=== PATIENT | male | born 1945 | race Caucasian/White ===

== ENCOUNTER → 2018-11-06 | Outpatient (CLI) | payer MEDICARE ==
[~2018-11-06] MED LIST: AMLO10 PO; ASPI81CH PO; ATOR40TA PO; CEPH500 PO; Flomax0.4 MG PO; HYDCHL25 PO; HYDMOR2 PO; LOSA50 PO; MELO7.5 PO; METO25ER PO; Norco 5-325 Ta1 EACH PO; Percocet 5-3251 EACH PO; Prilosec Otc20 MG PO; RXOXYACE PO; UNKNOWN BP MED; VALA500 PO; VITAMINS; WARF2 PO; Zofran Odt4 MG SL
[2018-11-17 08:15] LABS: CALCIUM OXALATE 3.16 ratio (0.00-6.00); CALCIUM, URINE 10.2 mg/dL (Not Estab.); CALCIUM, URINE 234.6 mg/24 hr (100.0-300.0); CHLORIDE URINE 283 (110-250); CITRIC ACID (CITRATE) 106 mg/L (Not Estab.); CITRIC ACID(CITRATE) 244 mg/24 hr (320-1240); CREATININE, URINE 1090.2 mg/24 hr (1000.0-2000.0); CREATININE, URINE 47.4 mg/dL (Not Estab.); MAGNESIUM, URINE 3.9 mg/dL (Not Estab.); MONOSODIUM URATE 2.61 ratio (0.00-4.00); OSMOLALITY, URINE 476 (300-900); SODIUM, URINE 133 mmol/L (Not Estab.); SODIUM, URINE 306 (58-337); STRUVITE 0.02 ratio (0.00-1.00); URIC ACID 0.49 ratio (0.00-1.20); URINE VOLUME 2300 mL/24 hr (800-1800); URINE VOLUME (PRESERVATIVE) 2300 mL/24 hr (800-1800)
== END | disposition home or self-care (01) ==
LOC: LAB SHORT 10:46 → LAB 10:46
PROVIDERS: Urology
DX: N20.2 Calculus of kidney with calculus of ureter (principal)
CPT/HCPCS: 81003; 81050; 82131; 82140; 82340; 82436; 82507; 82570; 83735; 83935; 83945; 84105; 84133; 84300; 84392; 84560

== ENCOUNTER 2018-11-24 08:11 | Observation (INO) | payer MEDICARE ==
[~2018-11-24] VITALS: Ht 175.3 cm; Wt 121.4 kg
[~2018-11-24 08:11] MED LIST changes: -ATOR40TA PO
[2018-11-24] MEDS ORDERED: Hair, Skin & N1 EACH PO (08:22)
[2018-11-24 08:44] LABS: BASOPHILS ABSOLUTE AUTO 0.03 K/mm3 (0.00-0.23); BASOPHILS PERCENT AUTO 0 % (0-2); EOSINOPHILS ABSOLUTE AUTO 0.13 K/mm3 (0.00-0.68); EOSINOPHILS PERCENT AUTO 2 % (0-6); Hematocrit 45.8 % (37.0-53.0); Hemoglobin 14.3 g/dL (13.5-17.5); IMMATURE GRAN ABSOLUTE AUTO 0.03 K/mm3 (0.00-0.10); IMMATURE GRAN PERCENT AUTO 0 % (0-1); LYMPHOCYTES ABSOLUTE AUTO 1.93 K/mm3 (0.84-5.20); LYMPHOCYTES PERCENT AUTO 26 % (21-46); MONOCYTES ABSOLUTE AUTO 0.57 K/mm3 (0.16-1.47); MONOCYTES PERCENT AUTO 8 % (4-13); Mean Corpuscular HGB Conc 31.2 g/dL (31.5-36.5); Mean Corpuscular Volume 87 fL (80-100); Mean Platelet Volume 11.3 fL (9.1-12.4); NEUTROPHILS ABSOLUTE AUTO 4.87 K/mm3 (1.96-9.15); NEUTROPHILS PERCENT AUTO 65 % (41-73); Platelet Count 156 K/mm3 (150-400); RDW Coefficient Variation 13.2 % (11.7-14.2); Red Blood Cell Count 5.29 M/mm3 (4.30-5.90); White Blood Cell Count 7.56 K/mm3 (4.00-11.30)
[2018-11-24 09:11] LABS: Alanine Aminotransfer (ALT/SGP 27 U/L (12-78); Albumin, Blood 3.5 g/dL (3.4-5.0); Albumin/Globulin Ratio 0.8 (0.8-1.8); Alk Phos 145 U/L (50-136); Anion Gap 6 mmol/L (6-16); Aspartate Aminotrans (AST/SGOT 14 U/L (12-37); Bilirubin, Total 0.7 mg/dL (0.1-1.0); Blood Urea Nitrogen 19 mg/dL (8-24); Bun/Creatinine Ratio 22.3 (12.0-20.0); CO2, Blood 29 mmol/L (21-32); Calcium, Blood 8.5 mg/dL (8.5-10.1); Chloride, Blood 106 mmol/L (98-108); Creatinine, Blood 0.85 mg/dL (0.60-1.20); Globulin, Blood 4.5 g/dL (2.2-4.0); Glomerular Filtration Rate >60 (60-); Glucose, Blood 136 mg/dL (70-99); Potassium, Blood 3.7 mmol/L (3.5-5.5); Sodium, Blood 141 mmol/L (136-145); Troponin I 0.104 ng/mL (0.000-0.040)
[2018-11-24 11:40] LABS: International Normalized Ratio 1.61; Prothrombin Time Results 16.3 Sec (9.7-11.5)
[2018-11-24] MEDS ORDERED: ATOR40TA PO (12:09)
[2018-11-24] MEDS ORDERED: Toprol Xl50 MG PO (12:10)
[2018-11-24] MEDS ORDERED: FURO20 PO (12:11)
[2018-11-24] MEDS ORDERED: Potaba500 MG PO (12:12)
[2018-11-24] MEDS ORDERED: POTA10T PO (12:14)
[2018-11-24] MEDS ORDERED: WARF4 PO (12:26)
[2018-11-24] MEDS ORDERED: Vitamin E400 UNI4 PO (12:31)
[2018-11-24] MEDS ORDERED: ASPI81CH PO (12:31)
[2018-11-24] MEDS ORDERED: CYAN500 PO (12:32)
[2018-11-24] MEDS ORDERED: Ferosul325 MG PO (12:32)
--- NOTE | 2018-11-24 14:45 | NUR ---
INITIAL ASSESSMENT PATIENT ARRIVED TO UNIT AT 1418. PATIENT ALERT AND ORIENTED X 4. [place]- BILAT HEARING AIDES IN PLACE. PATIENT AMBULATING WELL ON OWN. PATIENT AFEBRILE. PATIENT STATES THAT HE ONLY HAS PAIN IN CHEST WHEN COUGHS, OTHERWISE NO PAIN. PATIENT SATTING WELL ON RA. PATIENT STATES HE WEARS CPAP AT HOME AT NIGHT. LUNGS CLEAR IN UPPER LOBES, DIMINISHED IN LEFT LOWER LOBE, COARSE IN RML AND RLL. PATIENT HAS OCCASIONAL, NONPRODUCTIVE COUGH. PATIENT IN NSR WITH RBBB. HR IN THE 70S. SBP IN THE LOW 200S. ABDOMEN MODERATELY DISTENDED- PATIENT STATES NORMAL FOR HIM. ABD SOFT, NONTENDER, WITH HYPERACTIVE BS. PATIENT REPORTS LAST BM THIS AM. WNL. DRY SKIN ABOVE EARS- REPORTS THAT IS FROM GLASSES AND THEN HE PICKS AT. BILAT SHINS DISCOLORED, DRY, AND SCALING. PATIENT REPORTS HX OF PVD. HEPARIN INFUSING AT 13 UNITS/ KG/ HOUR. NS INFUSING AT 125 MLS/ HOUR. BED LOW, CALL LIGHT IN REACH. PATIENT HAS BEEN ORIENTED TO UNIT AND CALL SYSTEM. WILL CONTINUE TO MONITOR FREQUENTLY THROUGHOUT SHIFT.
--- NOTE | 2018-11-24 15:42 | NUR ---
DR. RODRIGUEZ CALLED AND INFORMED PRIMARY NURSE THAT THE PRIMARY DOCTOR WILL NEED TO TRANSFER PATIENT TO [place] IF HE IS HAVING A NSTEMI AND NEEDS AN ANGIO BECAUSE WE DO NOT HAVE INTERVENTIONAL BACKUP IF IT IS NEEDED. DR. LUU INFORMED OF THIS AND STATES THAT HE DOES NOT HAVE TIME TO FIND AN ACCEPTING HOSPITAL AND DOCTOR. CHARGE NURSE INFORMED. ALSO INFORMED DR. LUU THAT PATIENT TAKES DIURETICS AT HOME. ORDER FOR BNP RECEIVED.
[2018-11-24 15:50] LABS: Creatine Kinase MB 2.3 ng/mL (0.0-3.6); Troponin I 0.118 ng/mL (0.000-0.040)
--- NOTE | 2018-11-24 16:00 | NUR ---
PATIENT RESTING QUIETLY IN BED. PATIENT HAS TEMP OF 99.5 DEGREES FAHRENHEIT. PATIENT DENIES PAIN. PATIENT GIVEN PRN IV METOPROLOL FOR SBP OVER 150. NS INFUSING AT 75 MLS/ HOUR. NO OTHER ACUTE CHANGES TO NOTE ON AT THIS TIME. WILL CONTINUE TO MONITOR.
--- NOTE | 2018-11-24 16:16 | NUR ---
INFORMED DR. RODRIGUEZ ABOUT WHAT DR. LUU HAD TO SAY AND THAT TRANSFER STILL NEEDS TO BE INITIATED. INFORMED THAT NURSE SPOKE TO CHARGE NURSE, THERESA HUYNH, AND TEST DEVELOPER, CARLY RODRIGUEZ ABOUT DOCTOR TRANSFERRING. DR. RODRIGUEZ GIVEN DR. LUU'S NUMBER SO THEY CAN TALK TO EACH OTHER ABOUT WHO IS TO TRANSFER PATIENT.
--- NOTE | 2018-11-24 16:45 | NUR ---
INFORMED DR. LUU OF PATIENT'S CONTINUED HIGH BLOOD PRESSURE. ORDER FOR PRN IV HYDRALAZINE OBTAINED.
--- NOTE | 2018-11-24 17:54 | NUR ---
DR. PEDROTRATE INFORMED THAT PATIENT'S BP CONTINUES TO BE HIGH- SBP 189. ALSO INFORMED THAT TEMPERATURE CONTINUES TO INCREASE AND IS NOW AT 100.8 DEGREES FAHNREHEIT. ORDERS OBTAINED.
[2018-11-24 18:15] LABS: BASOPHILS ABSOLUTE AUTO 0.04 K/mm3 (0.00-0.23); BASOPHILS PERCENT AUTO 0 % (0-2); EOSINOPHILS ABSOLUTE AUTO 0.02 K/mm3 (0.00-0.68); EOSINOPHILS PERCENT AUTO 0 % (0-6); Hematocrit 45.1 % (37.0-53.0); Hemoglobin 14.1 g/dL (13.5-17.5); IMMATURE GRAN ABSOLUTE AUTO 0.04 K/mm3 (0.00-0.10); IMMATURE GRAN PERCENT AUTO 0 % (0-1); LYMPHOCYTES ABSOLUTE AUTO 1.36 K/mm3 (0.84-5.20); LYMPHOCYTES PERCENT AUTO 11 % (21-46); MONOCYTES ABSOLUTE AUTO 0.78 K/mm3 (0.16-1.47); MONOCYTES PERCENT AUTO 6 % (4-13); Mean Corpuscular HGB 27.2 pg (26.0-34.0); Mean Corpuscular HGB Conc 31.3 g/dL (31.5-36.5); Mean Corpuscular Volume 87 fL (80-100); Mean Platelet Volume 12.3 fL (9.1-12.4); NEUTROPHILS ABSOLUTE AUTO 9.99 K/mm3 (1.96-9.15); NEUTROPHILS PERCENT AUTO 82 % (41-73); Platelet Count 157 K/mm3 (150-400); RDW Coefficient Variation 13.2 % (11.7-14.2); RDW Standard Deviation 41.2 fL (35.1-46.3); Red Blood Cell Count 5.19 M/mm3 (4.30-5.90); White Blood Cell Count 12.23 K/mm3 (4.00-11.30)
--- NOTE | 2018-11-24 19:02 | NUR ---
SHIFT SUMMARY PATIENT REMAINS ALERT AND ORIENTED X 4. PATIENT WENT FROM AFEBRILE UPON ADMIT TO TMAX OF 100.8 DEGREES FAHRENHEIT. PATIENT [place]- BILAT HEARING AIDES IN PLACE. PATIENT STATED THAT HE ONLY HAD PAIN IN CHEST WHEN COUGHED. PATIENT REMAINED SATTING WELL ON RA. PATIENT STATES HE WEARS CPAP AT HS. PATIENT CONTINUES TO HAVE OCCASIONAL, NONPROD COUGH. LUNGS REMAINED CLEAR IN UPPER LOBES, DIMINISHED IN LLL, AND COARSE IN RLL. PATIENT REMAINED IN SR WITH RBBB. HR 60S TO 80S. SBP 160S TO LOW 200S. PATIENT GIVEN PRN IV METOPROLOL, LABETALOL AND HYDRALAZINE. NO CHANGE IN GI. PATIENT VOIDING INTO TOILET. NO CHANGE TO SKIN. HEPARIN INFUSING AT 13 UNITS/ KG/ HOUR, NS TKO. PATIENT HAS NO COMPLAINTS AT THIS TIME. PATIENT'S STEP SON HAS BEEN HERE SINCE ADMITTED. BED LOW, CALL LIGHT IN REACH. REPORT WILL BE GIVEN TO ONCOMING [employer]WN [employer]OWER MECHANIC NURSE SHORTLY.
--- NOTE | 2018-11-24 19:20 | NUR ---
ASSUME CARE; REPORT RECIEVED FROM OFF GOING RN PATRICK. MONITOR ITCT SHOWING SINUS RHYTHUM. HEART RATE 60'S-70S. DENIES DISCOMFORT. LUNG SOUNDS CLEAR UPPER LOBES WITH DECREASED SOUNDS IN THE BASES. SPO2 94-98% ABDOMEN SOFT WITH BOWEL SOUNDS FOUR QUADS. VOIDS AB URINE PER URINAL. VISITS WITH VISITIOR IN ROOM. REQUEST LATE MEAL TRAY. OBTAINED. ATE 80% TOLERATES WELL. REPOSITIONS SELF IN BED CONTINUE TO MONITOR AND REPORT CHANGE IN PATIENT CONDITION
[2018-11-24 20:31] LABS: Creatine Kinase MB 1.5 ng/mL (0.0-3.6); Creatine Kinase MB Index 1.4 (0.0-4.0); Troponin I 0.115 ng/mL (0.000-0.040)
[2018-11-24 21:02] LABS: Adenovirus Not Detected (NOT DETECT); Bordetella pertussis Not Detected (NOT DETECT); Chlamydophila pneumoniae Not Detected (NOT DETECT); Coronavirus 229E Not Detected (NOT DETECT); Coronavirus HKU1 Not Detected (NOT DETECT); Coronavirus NL63 Not Detected (NOT DETECT); Coronavirus OC43 Not Detected (NOT DETECT); Human Metapneumovirus Not Detected (NOT DETECT); Human Rhinovirus/Enterovirus Not Detected (NOT DETECT); Influenza A Not Detected (NOT DETECT); Influenza A/2009-H1 Not Detected (NOT DETECT); Influenza A/H1 Not Detected (NOT DETECT); Influenza A/H3 Not Detected (NOT DETECT); Influenza B Not Detected (NOT DETECT); Mycoplasma pneumoniae Not Detected (NOT DETECT); Parainfluenza Virus 1 Not Detected (NOT DETECT); Parainfluenza Virus 2 Not Detected (NOT DETECT); Parainfluenza Virus 3 Not Detected (NOT DETECT); Parainfluenza Virus 4 Not Detected (NOT DETECT); Respiratory Syncytial Virus Not Detected (NOT DETECT)
[2018-11-25 05:23] LABS: BASOPHILS ABSOLUTE AUTO 0.04 K/mm3 (0.00-0.23); BASOPHILS PERCENT AUTO 0 % (0-2); EOSINOPHILS ABSOLUTE AUTO 0.04 K/mm3 (0.00-0.68); EOSINOPHILS PERCENT AUTO 0 % (0-6); Hematocrit 41.4 % (37.0-53.0); Hemoglobin 13.1 g/dL (13.5-17.5); IMMATURE GRAN ABSOLUTE AUTO 0.04 K/mm3 (0.00-0.10); IMMATURE GRAN PERCENT AUTO 0 % (0-1); LYMPHOCYTES ABSOLUTE AUTO 2.39 K/mm3 (0.84-5.20); LYMPHOCYTES PERCENT AUTO 19 % (21-46); MONOCYTES ABSOLUTE AUTO 1.15 K/mm3 (0.16-1.47); MONOCYTES PERCENT AUTO 9 % (4-13); Mean Corpuscular HGB 27.1 pg (26.0-34.0); Mean Corpuscular HGB Conc 31.6 g/dL (31.5-36.5); Mean Corpuscular Volume 86 fL (80-100); Mean Platelet Volume 11.3 fL (9.1-12.4); NEUTROPHILS ABSOLUTE AUTO 9.27 K/mm3 (1.96-9.15); NEUTROPHILS PERCENT AUTO 72 % (41-73); Platelet Count 144 K/mm3 (150-400); RDW Coefficient Variation 13.3 % (11.7-14.2); RDW Standard Deviation 41.2 fL (35.1-46.3); Red Blood Cell Count 4.83 M/mm3 (4.30-5.90); White Blood Cell Count 12.93 K/mm3 (4.00-11.30)
[2018-11-25 05:42] LABS: International Normalized Ratio 2.04; Prothrombin Time Results 20.3 Sec (9.7-11.5)
[2018-11-25 05:48] LABS: Anion Gap 6 mmol/L (6-16); Blood Urea Nitrogen 17 mg/dL (8-24); Bun/Creatinine Ratio 16.8 (12.0-20.0); CO2, Blood 28 mmol/L (21-32); Calcium, Blood 8.5 mg/dL (8.5-10.1); Chloride, Blood 108 mmol/L (98-108); Cholesterol 114 mg/dL (50-200); Creatinine, Blood 1.01 mg/dL (0.60-1.20); Glomerular Filtration Rate >60 (60-); Glucose, Blood 113 mg/dL (70-99); Potassium, Blood 3.8 mmol/L (3.5-5.5); Sodium, Blood 142 mmol/L (136-145); Triglycerides 148 mg/dL (30-160)
--- NOTE | 2018-11-25 06:13 | NUR ---
SHIFT SUMMARY : RESTS QUIETLY WHEN UNDISTURBED. MONITOR INTACT SHOWING SINUS RHYTHM. HEART RATE 70S. DENIES DISCOMFORT. LUNG SOUNDS COARSE WITH AUDIBLE WHEEZE. RESPIRATIONS 20-24/M. SPO2 92-97% SPOT CHECK. ABDOMEN SOFT WITH BOWEL SOUNDS FOUR QUADS. VOIDS AB URINE. GAIT STEADY TO TOILET AND UP IN ROOM UP IN CHAIR FOR SEVERAL HOURS TONIGHT. CONTINUE TO MONITOR AND REPORT CHANGE IN PATIENT CONDITION.
--- NOTE | 2018-11-25 07:59 | NUR ---
ASSUMED CARE PT ALERT AND ORIENTED THIS AM; UP TO BESIDE CHAIR INDEPENDENTLY. PT STATES "I WOULD LIKE TO GO HOME THIS MORNING, IM FEELING BETTER, I DONT WANT ANY TESTS" EXPLAINED TO PT THE RISKS OF LEAVING AT THIS TIME AND REQUESTED PT WAIT TO SPEAK WITH THE DR. , PT AGREED, DR LUU CALLED AND SPOKE WITH PT. PT AWAITING EXAM FROM DR. LUU AND POSSIBLE DISCHARGE
--- NOTE | 2018-11-25 08:32 | NUR ---
DR. PEDROTRATE IN TO SEE PT. PLANS FOR DISCHARGE THIS AM. IVS STOPPED/ DC'D.
[2018-11-25] MEDS ORDERED: AMLO10 PO (09:05)
[2018-11-25] MEDS ORDERED: PAIN & FEVER325 MG PO (09:05)
[2018-11-25] MEDS ORDERED: NITR.6SL SL (09:06)
[2018-11-25] MEDS ORDERED: ONDA4ODT PO (09:07)
--- NOTE | 2018-11-25 09:23 | NUR ---
DISCHARGE PT. DISCHARGED AT THIS TIME. CALLED [facility] TO SET UP APPOINTMENT HOWEVER THEY WILL BE CONTACTING PT TO SET UP APPOINTMENT DUE TO SCHEDULING CONFLICTS. PT. ALSO SCHEDULED FOR CARDIAC STRESS TEST UPON DISCHARGE; PHONE NUMBER PROVIDED TO PT TO CALL IF HE NEEDS TO RESCHEDULE. PT. TO STOP BY PCP OFFICE ON HIS WAY HOME TO SET UP FOLLOW UP APPOINTMENT. NEW MEDICATIONS EXPLAINED AND CALLED TO [facility] PER PT REQUEST. PT ABLE TO AMBULATE TO EXIT WITH SON, REFUSING WHEEL CHAIR. PT. ENCOURAGED TO RETURN FOR WORSENING SYMPTOMS. IVS REMOVED UPON DISCHARGE. ALL BELONGINGS TAKEN WITH PT UPON DISCHARGE.
== END 2018-11-25 09:42 | disposition home or self-care (01) ==
LOC: ER 08:11 → ICUE 08:12 → ERHOLD 08:12 → ICUE 14:15
PROVIDERS: Emergency Medicine; ADMIT Family Medicine
DX: R07.9 Chest pain, unspecified (principal); R77.8 Other specified abnormalities of plasma proteins; I16.0 Hypertensive urgency; I25.10 Atherosclerotic heart disease of native coronary artery without angina pectoris; E78.5 Hyperlipidemia, unspecified; E66.9 Obesity, unspecified; I48.0 Paroxysmal atrial fibrillation; Z87.891 Personal history of nicotine dependence; Z79.899 Other long term (current) drug therapy; Z79.82 Long term (current) use of aspirin; Z79.01 Long term (current) use of anticoagulants; Z95.2 Presence of prosthetic heart valve; Z95.1 Presence of aortocoronary bypass graft; Z23 Encounter for immunization; Z68.38 Body mass index [BMI] 38.0-38.9, adult
CPT/HCPCS: 36415; 71046; 80048; 80053; 82465; 82550; 82553; 83880; 84443; 84478; 84484; 85025; 85379; 85610; 85730; 87486; 87581; 87633; 87798; 90686; 93005; 93010; 94640; 96374; 96375; 96376; 99285-25; C8929; G0008; G0378; J0360; J1644; J7030; Q9957

== ENCOUNTER → 2020-03-01 | Outpatient (CLI) | payer MEDICARE ==
[~2020-03-01] MED LIST changes: +ATOR40TA PO; +CYAN500 PO; +FURO20 PO; +Ferosul325 MG PO; +Hair, Skin & N1 EACH PO; +NITR.6SL SL; +ONDA4ODT PO; +PAIN & FEVER325 MG PO; +POTA10T PO; +Potaba500 MG PO; +Toprol Xl50 MG PO; +Vitamin E400 UNI4 PO; +WARF4 PO
[2020-03-02 15:32] LABS: BASOPHILS ABSOLUTE AUTO 0.04 K/mm3 (0.00-0.23); BASOPHILS PERCENT AUTO 1 % (0-2); EOSINOPHILS ABSOLUTE AUTO 0.09 K/mm3 (0.00-0.68); EOSINOPHILS PERCENT AUTO 1 % (0-6); Hematocrit 35.5 % (37.0-53.0); Hemoglobin 10.4 g/dL (13.5-17.5); IMMATURE GRAN ABSOLUTE AUTO 0.03 K/mm3 (0.00-0.10); IMMATURE GRAN PERCENT AUTO 0 % (0-1); LYMPHOCYTES ABSOLUTE AUTO 2.06 K/mm3 (0.84-5.20); LYMPHOCYTES PERCENT AUTO 25 % (21-46); MONOCYTES ABSOLUTE AUTO 0.56 K/mm3 (0.16-1.47); MONOCYTES PERCENT AUTO 7 % (4-13); Mean Corpuscular HGB 28.3 pg (26.0-34.0); Mean Corpuscular HGB Conc 29.3 g/dL (31.5-36.5); Mean Corpuscular Volume 97 fL (80-100); Mean Platelet Volume 12.4 fL (9.1-12.4); NEUTROPHILS ABSOLUTE AUTO 5.62 K/mm3 (1.96-9.15); NEUTROPHILS PERCENT AUTO 67 % (41-73); Platelet Count 229 K/mm3 (150-400); RDW Coefficient Variation 15.4 % (11.7-14.2); RDW Standard Deviation 52.7 fL (35.1-46.3); Red Blood Cell Count 3.68 M/mm3 (4.30-5.90)
[2020-03-02 15:41] LABS: Percent Saturation 12.1 % (20.0-50.0)
== END | disposition home or self-care (01) ==
LOC: LAB SHORT 15:30 → LAB 15:30
PROVIDERS: Nurse Practitioner Primary Care
DX: D64.9 Anemia, unspecified (principal); K92.2 Gastrointestinal hemorrhage, unspecified
CPT/HCPCS: 82728; 83540; 83550; 84443; 85025